=== PATIENT | female | born 1990 | race Caucasian/White ===

== ENCOUNTER → 2020-08-29 16:45 | Outpatient (CLI) | payer OTHER, SELFPAY ==
[2020-08-29 17:06] LABS: HCG Qualitative, Serum Negative (Negative)
[2020-08-29 17:15] LABS: Basophils % 0.5 % (0.1-2.0); Eosinophils # 0.1 K/mm3 (0.0-0.4); Eosinophils % 1.3 % (0.1-12.0); Hematocrit 43.4 % (37.0-47.0); Hemoglobin 14.7 g/dL (12.2-16.2); Lymphocytes # 3.1 K/mm3 (0.7-4.5); Mean Corpuscular Hemoglobin 29.1 pg (27.0-31.2); Mean Corpuscular Volume 85.7 fl (81-99); Mean Platelet Volume 8.4 fl (7.4-10.4); Monocytes # 0.6 K/mm3 (0.1-1.0); Monocytes % 6.8 % (1.7-9.3); Neutrophils # 4.8 K/mm3 (1.8-7.8); Neutrophils % 55.4 % (37.0-80.0); Platelet Count 429 K/mm3 (142-424); Red Blood Count 5.07 M/mm3 (4.20-5.40); Red Cell Distribution Width 13.3 % (11.5-17.5); White Blood Count 8.7 K/mm3 (4.8-10.8)
[2020-08-29 17:30] LABS: Alanine Aminotransferase 66 U/L (12-78); Albumin Level 4.5 g/dl (3.5-5.0); Albumin/Globulin Ratio 1.3 (1.1-1.8); Alkaline Phosphatase 90 U/L (38-126); Anion Gap 15.2 mEq/L (5-15); Aspartate Amino Transferase 63 U/L (14-36); Bilirubin,Total 0.4 mg/dl (0.2-1.3); Blood Urea Nitrogen 8 mg/dl (7-17); Carbon Dioxide 25 mmol/L (22.0-30.0); Chloride 103 mmol/L (98-107); Chol/HDL Ratio 3.9 (1-3.5); Cholesterol 205 mg/dl (140-200); Estimated Glomerular Filt Rate 84 ml/min (>60); GFR (African American) 102 ML/MIN (>60); Globulin 3.6 g/dL (1.3-3.2); Glucose 113 mg/dl (74-100); HDL Cholesterol 52 mg/dl (40-60); Potassium 4.2 mmoL/L (3.5-5.1); Sodium 139 mmol/L (136-145); Total Protein,Serum 8.1 g/dl (6.3-8.2); Triglycerides 187 mg/dl (30-150); VLDL Cholesterol 37 mg/dL (0-40)
[2020-08-29 17:41] LABS: Direct LDL Cholesterol 125.87 mg/dL (100-129)
[2020-08-29 17:48] LABS: T4 (Thyroxine) 8.4 ug/dl (5.53-11.0)
[2020-08-29 18:02] LABS: Thyroid Stimulating Hormone 2.58 uIU/mL (0.465-4.68)
[2020-08-30 13:38] LABS: Hemoglobin A1C 5.3 % (4.0-6.0)
== END ==
PROVIDERS: Visit Provider Physician Assistant
DX: N92.6 Irregular menstruation, unspecified (principal); R53.83 Other fatigue; R89.9 Unspecified abnormal finding in specimens from other organs, systems and tissues
CPT/HCPCS: 80053; 80061; 83036; 84436; 84443; 84703; 85025

== ENCOUNTER → 2022-10-17 10:01 | Outpatient (CLI) | payer OTHER, SELFPAY ==
--- NOTE | 2022-10-17 10:05 | XR_ITS ---
FINAL REPORT CLINICAL HISTORY: right foot pain FINDINGS: Right foot Three views were obtained. There is no acute fracture or dislocation. The joint spaces appear normal. No soft tissue abnormality is identified. IMPRESSION: No acute process. Reviewed, Interpreted and Dictated by Tristan Becerra III, MD Transcribed by Latoya Weston Authenticated and . [facility]
--- NOTE | 2022-10-17 10:05 | XR_ITS ---
FINAL REPORT CLINICAL HISTORY: left foot pain FINDINGS: Left foot Three views were obtained. There is no acute fracture or dislocation. The joint spaces appear normal. No soft tissue abnormality is identified. IMPRESSION: No acute process. Reviewed, Interpreted and Dictated by Tristan Becerra III, MD Transcribed by Latoya Weston Authenticated and [facility]
== END ==
PROVIDERS: PCP Physician Assistant; Visit Provider Physician Assistant
DX: M79.671 Pain in right foot (principal); M79.672 Pain in left foot
CPT/HCPCS: 73630

== ENCOUNTER 2024-02-02 11:06 | Outpatient (RCR) | payer OTHER, SELFPAY ==
--- NOTE | 2024-02-02 16:25 | HMH.PTOPEV ---
PT Outpatient Evaluation Rehab PT Outpatient Evaluation Start: 02/02/24 16:02 Freq: Status: Active Protocol: Document 02/02/24 16:04 PHORYESI (Rec: 02/02/24 16:25 PHORYESI Laptop) E-signed By Eliel Aly, PT Outpatient Therapy Subjective History Subjective History This is the initial PT eval for Malgorzata Lombardi, 34 yowf who presents with c/o pain in her low back x ~ 6 mos with insidious onset of symptoms. She also reports R hip pain due to a leg length discrepancy, I've had it all of my life. She reports no recent diagnostic imaging. She c/o pain that is constant, but worse with certain activities, especially standing. She reports no c/o numbness/tingling or radicular symptoms. New diagnosis of cancer in past 12 No months? Chief Complaint Pain Symptom Type Ache,Sharp,Dull,Stabbing Symptoms Relieved By Rest/Positioning Symptoms Aggravated By Standing,Walking Prior Functional Limitations None Current Functional Limitations Housework,Sleeping,Standing, Walking Level of pain today (0-10) 3 Pain scale - at its best (0-10) 3 Pain scale - at its worst (0-10) 10 Lumbopelvic Eval Posture Lumbar Spine Posture Standing Position Increased Lordosis,Flexible Scoliosis on (R) Palapation tenderness bilateral lumbar spinal tenderness Yes: 1/4 paraspinal tenderness Yes: 1/4 Lumbar/Sacral Palpation Findings Tenderness Lumbar/Sacral Palpation Overall Comment worse on R side, 1/4 Accessory Movement L-spine Vertebrae Accessory Movements Central P/A [place] that Elicit Symptoms L2 bilateral L3 bilateral L4 bilateral L5 bilateral S1 bilateral Range of Motion Lumbar Spine Active Flexion Range of 0-45 Motion (degrees) Lumbar Spine Active Extension Range of 0-15 Motion (degrees) Left Lumbar Spine Lateral Flexion Active 0-15 Range of Motion (degrees) Right Lumbar Spine Lateral Flexion 0-10 Active Range of Motion (degrees) Manual Muscle Test Left Knee Extension Strength Grade 5 Normal Knee Flexion Strength Grade 5 Normal Hip Flexion Strength Grade 4 Good Hip Abduction Strength Grade 4 Good Hip External Rotation Strength Grade 4 Good Hip Internal Rotation Strength Grade 4 Good Extensor Hallucis Longus Strength Grade 5 Normal Ankle Dorsiflexion Strength Grade 5 Normal Gastronemius/Soleus Strength Grade 5 Normal Right Knee Extension Strength Grade 4 Good Knee Flexion Strength Grade 5 Normal Hip Flexion Strength Grade 2 Poor Hip Abduction Strength Grade 3 Fair Hip External Rotation Strength Grade 3 Fair Hip Internal Rotation Strength Grade 3 Fair Extensor Hallucis Longus Strength Grade 4 Good Ankle Dorsiflexion Strength Grade 4 Good Gastronemius/Soleus Strength Grade 4 Good Special Tests Hip Scouring (Quadrant) Test Negative Left,Negative Right Hip Ian (OZZIE) Test Negative Left,Positive Right Hip Bowstring (Cram) Test Negative Left,Negative Right Sciatic Nerve Tension Test Negative Left,Positive Right Unilateral Straight Leg Raise (Lasegue) Negative Left,Negative Right Test True Leg Length Discrepency Test R LE 12mm long Lumbar Long [place] Distraction Test/Manual Negative Traction Oswestry Index Section 1 Pain Intensity The pain comes and goes and is severe Section 2 Personal Care (Washing,Dresing) my way of washing or dressing even though it causes some pain Section 3 Lifting Pain prevents me from lifting weights off the floor Section 4 Walking I cannot walk at all without increasing pain Section 5 Sitting Pain prevents me from sitting for more than 10 minutes Section 6 Standing I avoid standing because it increases the pain immediately Section 7 Sleeping Because of my pain, my normal night's sleep is less than 6 hours sleep Section 8 Social Life Pain has restricted my social life and I do not go out often Section 9 Traveling I get extra pain while traveling which compels me to seek alternate fo Section 10 Changing Degreee of Pain My pain is gradually getting worse Score and Risk Level Oswestry Sc 33 Oswestry Risk Level Severe Disability Outpatient Therapy Assessment Impairments Problems/Impairmments Palpation Tenderness,Impaired Range of Motion,Impaired Strength,Impaired Gait Pattern ,Impaired Walking,Impaired Standing,Impaired Sitting, Impaired Household Care, Impaired Stepping on Uneven Surface,Subjective C/O Pain, Impaired Self Care/Self Management Prognosis Rehab Potential Good Comment Signs and symptoms consistent with chronic low back pain related to R LE leg length discrepancy and core weakness. Skilled therapy services are indicated to help her return to prior level of function for all ADLs. Clinical Impression Consistent with Diagnosis Yes Short Term Goals Number of Weeks 2 Increase Range of Motion Yes: Lumbar AROM by 5 deg all dir Increase Strength Yes: R LE >3+/5 throughout Improve Gait Pattern without Assistive Yes: no R LE circumduction Device Improve Oswestry Score Yes: Moderate Disability Decrease Subjective C/O Pain Yes: 8/10 at worst low back Patient to be Ind w/ HEP Yes Prison Goals Number of Weeks 4 Decreased Palpation Tenderness Yes: 0/4 TTP low back Increase Range of Motion Yes: lumbar AROM by 10 deg all dir Increase Strength Yes: R LE at least 4+/5 throughout Increase Ability to Stand Yes: > 30 min without pain Improve Ability For Household Care Yes Improve Oswestry Score Yes: Mild disability Decrease Subjective C/O Pain Yes: 6/10 at worst low back Patient to be Ind w/ Advanced HEP Yes Outpatient Therapy Plan of Care Treatment Plan May Include Therapeutic Exercise Including Home Yes Exercise Program Manual Therapy Techniques Yes Neuromuscular Re-education Yes Therapeutic Activities to Return to Yes Previous Functional/Work Level Gait Training Yes ADL/Self Care Education Yes Dry Needling Yes Thermal Modalities Yes Electrical Stimulation Yes Ultrasound/Phonophoresis Yes Orthotics/Bracing/Splinting Yes Massage Yes Eval/Re-Eval Yes Frequency Times per week 2 Duration Number of Weeks 4 Addendums This patient is a candidate for social No or vocational rehab? Patient/Guardian verbally acknowledges Yes understanding of treatment program and consents to further treatment? Patient/Guardian verbally acknowledges Yes understanding of diagnosis, prognosis and goals for treatment? Eval Complexity PT Charges 12355 - High Complexity Shoulder/Elbow Eval Shoulder Objective Measurements Elbow Objective Measurements PHYSICIAN CERTIFICATION: I certify the specified therapy services for Malgorzata Lombardi are required, authorized, and reviewed every 30 days.
== END 2024-02-02 11:10 | disposition home or self-care (01) ==
LOC: PT 11:06
PROVIDERS: Visit Provider Physician Assistant
DX: M54.9 Dorsalgia, unspecified (principal); M54.50 Low back pain, unspecified
CPT/HCPCS: 97110; 97163; 97535

== ENCOUNTER 2024-12-30 13:53 | Outpatient (CLI) | payer OTHER, SELFPAY ==
--- NOTE | 2024-12-30 | US_ITS ---
PROCEDURE INFORMATION: Exam: US Right Breast, Complete US Left Breast, Complete MG Bilateral Diagnostic Breast Tomosynthesis Exam date and time: 12/30/2024 3:21 PM Age: 34 years old Clinical indication: Bilateral breast pain; Additional info: Mastodynia TECHNIQUE: Imaging protocol: Complete ultrasound of all four quadrants of the right breast and the retroareolar regions, including ultrasound of the axilla when performed. Complete ultrasound of all four quadrants of the left breast and the retroareolar regions, including ultrasound of the axilla when performed. Bilateral Diagnostic tomosynthesis and 2D mammography including computer-aided detection (CAD) when performed. Unilateral or bilateral exam. COMPARISON: MG MM DIG MAMM BI DX W/CAD 12/30/2024 2:04 PM FINDINGS: MAMMOGRAPHY: Breast composition: There are scattered areas of fibroglandular density. Breast mammogram findings: There is no stellate mass, architectural distortion or suspicious microcalcifications in either breast to suggest malignancy. 4.0 cm with a marginated ovoid mass on the left in the retroareolar region. No skin thickening or axillary adenopathy. ULTRASOUND: Breast ultrasound findings: Sonographic images of both breasts including the retroareolar regions, all 4 quadrants and the axilla demonstrates a uniformly hypoechoic smoothly marginated ovoid solid mass in the left 6 o'clock retroareolar region corresponding to the mass on mammography. It measures 4.0 x 4.1 x 1.4 cm in dimension. The findings radiographically indeterminate No architectural distortion or acoustical shadowing. No skin thickening or axillary adenopathy. IMPRESSION: Indeterminate solid mass in the left breast. Ultrasound-guided core biopsy is recommended for further evaluation. ASSESSMENT: BI-RADS Category 4: Suspicious.
== END 2024-12-30 23:59 | disposition home or self-care (01) ==
LOC: RAD 13:54
PROVIDERS: PCP Physician Assistant; Visit Provider Physician Assistant
DX: N64.4 Mastodynia (principal)
CPT/HCPCS: 76641; 77062; 77066; G0279

== ENCOUNTER 2025-01-14 07:34 | Outpatient (CLI) | payer OTHER, SELFPAY ==
--- NOTE | 2025-01-14 07:36 | US_ITS ---
FINAL REPORT CLINICAL HISTORY: LUMP LT BREAST - DR. OSMANY KOCH FINDINGS: ULTRASOUND-GUIDED LEFT BREAST CORE BIOPSY TECHNIQUE: Limited images were obtained to localize region of interest. The left breast was prepped in a routine sterile fashion and locally anesthetized with 1% lidocaine. Standard written informed consent was obtained. The biopsy needle was positioned within the outer periphery of the lesion. A total of 4 passes were made with a 18 gauge core biopsy needle. A biopsy marker clip was deployed in satisfactory position. Postbiopsy mammogram showed postbiopsy changes with clip in satisfactory position. Procedure was well tolerated . CONCLUSION: 1. Technically successful ultrasound guided core biopsy of left breast lesion as above. 2. 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 Pathology is concordant with mammographic findings. Recommend 6 month sonographic follow-up as routine benign postbiopsy surveillance. Authenticated and [facility]
== END 2025-01-14 23:59 | disposition home or self-care (01) ==
LOC: RAD 07:34
PROVIDERS: PCP Physician Assistant; Visit Provider Physician Assistant
DX: N63.25 Unspecified lump in the left breast, overlapping quadrants (principal)
CPT/HCPCS: 19083